=== PATIENT | female | born 2000 | race Hispanic/Latino ===

== ENCOUNTER 2021-10-04 21:10 | Day surgery (SDC) | payer OTHER ==
[2021-10-04 21:39] VITALS: BMI 32.3
[2021-10-04] MEDS ORDERED: hydrALAZINE 20 MG/ML VIAL SLOW IVP PRN (23:08)
[2021-10-04] MEDS ORDERED: Lactated Ringer's 1,000 ML IV SCH (23:15)
== END 2021-10-05 01:05 | disposition home or self-care (01) ==
LOC: CSHLD/OP 21:10
PROVIDERS: ATTEND Obstetrics & Gynecology
DX: O47.1 False labor at or after 37 completed weeks of gestation (principal); O99.891 Other specified diseases and conditions complicating pregnancy; R00.0 Tachycardia, unspecified; O99.353 Diseases of the nervous system complicating pregnancy, third trimester; G35 Multiple sclerosis; O34.219 Maternal care for unspecified type scar from previous cesarean delivery; Z3A.38 38 weeks gestation of pregnancy
CPT/HCPCS: 96360; 96361; 99282

== ENCOUNTER 2021-10-12 02:47 | Inpatient (IN) | payer OTHER ==
[2021-10-12 03:20] VITALS: BMI 32.5
[2021-10-12] MEDS ORDERED: NS w/ Oxytocin 30 units 500 ML IV SCH ×2 (07:15→22:00)
[2021-10-12] MEDS ORDERED: Lidocaine 1% (PF) 30 ML VIAL SC PRN (07:15)
[2021-10-12] MEDS ORDERED: Ibuprofen 800 MG TAB PO PRN (07:15)
[2021-10-12] MEDS ORDERED: HYDROcodone/Acetaminophen 5/325 mg Tablet PO PRN ×3 (07:15→21:39)
[2021-10-12] MEDS ORDERED: Carboprost 250 MCG/ML AMP IM PRN (07:15)
[2021-10-12] MEDS ORDERED: Promethazine HCl 25 MG/ML VIAL IM PRN ×2 (07:15→12:51)
[2021-10-12] MEDS ORDERED: Misoprostol 200 MCG TAB PR PRN (07:15)
[2021-10-12] MEDS ORDERED: Methylergonovine 0.2 MG/ML VIAL IM PRN ×2 (07:15→21:39)
[2021-10-12] MEDS ORDERED: Diphenoxylate HCl/Atropine Tablet PO PRN (07:15)
[2021-10-12] MEDS ORDERED: Acetaminophen 500 MG TAB PO PRN (07:15)
[2021-10-12] MEDS ORDERED: hydrALAZINE 20 MG/ML VIAL SLOW IVP PRN ×2 (07:15→21:39)
[2021-10-12] MEDS ORDERED: Ondansetron PF 4 MG/2 ML Vial IVP PRN ×3 (07:15→21:39)
[2021-10-12 07:51] LABS: Mean Corpuscular Hemoglobin 30.7 pg (27.0-33.0); Mean Corpuscular Volume 87.7 fl (81.6-98.3); Mean Platelet Volume 12.3 fl (7.4-10.4); Platelet Count 180 10x3/uL (150-450); Red Blood Cell (RBC) Count 3.91 10x6/uL (3.90-5.03); White Blood Cell (WBC) Count 10.2 10x3/uL (3.5-10.5)
[2021-10-12] MEDS: Butorphanol Tartrate 1 MG/ML VIAL SLOW IVP PRN ×2 (07:55→10:59)
[2021-10-12] MEDS ORDERED: Lidocaine 2% MPF 10 ML AMP (For Epidural Use) ONE (08:00)
[2021-10-12] MEDS ORDERED: Bupivacaine 0.25% HCL 30 ML VIAL ONE (08:00)
[2021-10-12 08:23] LABS: Hep B Surf Ag Non-Reactive S/CO (NonReactive)
[2021-10-12 08:24] LABS: Syphilis Antibody Nonreactive (Nonreactive); Syphilis Antibody Index 0.03 S/CO (<1.00 Non-Reactive)
[2021-10-12 09:03] LABS: HBSAg Index 0.22 S/CO (0-0.99)
[2021-10-12 11:34] LABS: SARS-CoV-2 NAA Rapid Test Not Detected (NotDetected)
[2021-10-12] MEDS ORDERED: Fentanyl 2 mcg/Bup 0.1% Cadd 100 ML ONE (12:05)
[2021-10-12] MEDS: Lactated Ringer's 1,000 ML IV SCH ×2 (12:37→18:20)
[2021-10-12] MEDS ORDERED: Lactated Ringer's 500 ML IV PRN (12:51)
[2021-10-12] MEDS ORDERED: Naloxone HCl 0.4 mg/ml Vial IVP PRN ×2 (12:51)
[2021-10-12] MEDS ORDERED: Hydrocerin (Eucerin) Cream 120 gm Jar TOP PRN (12:51)
[2021-10-12] MEDS ORDERED: Acetaminophen 325 MG TAB PO PRN (12:51)
[2021-10-12] MEDS ORDERED: ePHEDrine Sulfate 50 MG/10 ML VIAL SLOW IVP PRN (12:51)
[2021-10-12] MEDS ORDERED: diphenhydrAMINE 50 MG/ML VIAL IVP PRN (12:51)
[2021-10-12] MEDS ORDERED: Fentanyl 2 mcg/Bupivacaine 0.1% Cassette 100 ML EPIDURAL SCH (13:00)
[2021-10-12] MEDS ORDERED: Communication Order-Pharmacy FS SCH (13:00)
[2021-10-12] MEDS ORDERED: PROPOFOL 20 ML ONE (13:01)
[2021-10-12] MEDS: NS w/ Oxytocin 30 units 500 ML IV SCH ×2 (17:30→18:21)
[2021-10-12] MEDS ORDERED: Lanolin Ointment 7 GM TUBE TOP PRN (21:39)
[2021-10-12] MEDS ORDERED: Boostrix 0.5 ML (Tdap) VIAL IM ONE (21:39)
[2021-10-12] MEDS ORDERED: Bisacodyl 10 MG SUPP PR PRN (21:39)
[2021-10-12] MEDS ORDERED: Misoprostol 200 MCG TAB VAG PRN (21:39)
[2021-10-12] MEDS ORDERED: Zolpidem Tartrate 5 MG TAB PO PRN (21:39)
[2021-10-12] MEDS ORDERED: Milk Of Magnesia 30 ML UDCUP PO PRN (21:39)
[2021-10-12] MEDS ORDERED: Benzocaine-Menthol 82.5 ML CAN TOP PRN (21:39)
[2021-10-12] MEDS ORDERED: Docusate 100 MG CAP PO SCH (22:00)
[2021-10-12] MEDS: Ibuprofen 800 MG TAB PO SCH (22:29)
[2021-10-13] MEDS: Ibuprofen 800 MG TAB PO SCH ×3 (06:03→21:12)
[2021-10-13] MEDS: HYDROcodone/Acetaminophen 5/325 mg Tablet PO PRN ×2 (07:24→17:56)
[2021-10-13] MEDS: Ferrous Sulfate 325 MG TAB PO SCH ×2 (09:09→17:56)
[2021-10-13] MEDS: Prenatal Vitamin 1 TAB PO SCH (09:11)
[2021-10-13] MEDS: Docusate 100 MG CAP PO SCH ×2 (09:11→21:12)
[2021-10-14] MEDS: Ibuprofen 800 MG TAB PO SCH (06:03)
[2021-10-14] MEDS: Ferrous Sulfate 325 MG TAB PO SCH (07:28)
[2021-10-14 08:25] VITALS: BP 108/62; TEMP 97.9
[2021-10-14] MEDS: Prenatal Vitamin 1 TAB PO SCH (08:42)
[2021-10-14] MEDS: Docusate 100 MG CAP PO SCH (08:42)
== END 2021-10-14 10:14 | disposition home or self-care (01) | DRG 806 ==
LOC: CSHLD/OP 02:47 → CSHLD 07:13 → CSHPP 21:36
PROVIDERS: ADMIT Obstetrics & Gynecology; ATTEND Obstetrics & Gynecology
PROC: 10E0XZZ Delivery of Products of Conception, External Approach (ICD-10-PCS; principal; 2021-10-12)
PROC: 10907ZC Drainage of Amniotic Fluid, Therapeutic from Products of Conception, Via Natural or Artificial Opening (ICD-10-PCS; 2021-10-12)
PROC: 0HQ9XZZ Repair Perineum Skin, External Approach (ICD-10-PCS; 2021-10-12)
DX: O34.211 Maternal care for low transverse scar from previous cesarean delivery (principal); O99.354 Diseases of the nervous system complicating childbirth; Z37.0 Single live birth; Z3A.39 39 weeks gestation of pregnancy; J45.909 Unspecified asthma, uncomplicated; O99.52 Diseases of the respiratory system complicating childbirth; G35 Multiple sclerosis; O70.0 First degree perineal laceration during delivery
CPT/HCPCS: 36415; 51702; 85027; 86780; 86850; 86900; 86901; 87340; 99285; J0595; J2405; J2590; J2704; J7120; S0020; U0002

== ENCOUNTER 2022-05-06 14:29 | Emergency (ER) | payer BC ==
[2022-05-06 15:38] LABS: #Eosinphils 0.1 10x3/uL (0.0-0.5); #Monocytes 0.4 10x3/uL (0.0-1.1); #Neutrophils 2.6 10x3/uL (1.5-8.4); %Basophils 0.2 % (0.0-2.0); %Eosinophils 1.1 % (0.0-6.0); %Lymphocytes 32.1 % (18.0-47.0); %Monocytes 9.1 % (0.0-10.0); %Neutrophils 57.3 % (40.0-75.0); Hemoglobin 12.5 g/dL (12.0-15.5); Mean Corpuscular HGB CONC 36.1 g/dL (32.0-36.0); Mean Corpuscular Hemoglobin 30.5 pg (27.0-33.0); Mean Corpuscular Volume 84.4 fl (81.6-98.3); Mean Platelet Volume 11.5 fl (7.4-10.4); Platelet Count 233 10x3/uL (150-450); RBC Distribution Width 12.5 % (11.5-14.5); White Blood Cell (WBC) Count 4.5 10x3/uL (3.5-10.5)
[2022-05-06 15:41] LABS: Bilirubin 1+ (Negative); Blood, Urine Negative (Negative); Clarity Slightly Cloudy (Clear); Glucose, Urine (Dipstick) Normal (Negative); Ketone, Urine 50 mg/dL (Negative); Leukocyte 25 (Negative); Nitrite Positive (Negative); Protein, Urine (Dipstick) 30 mg/dl (Neg-Trace)
[2022-05-06 15:55] LABS: RBC/HPF 0-3 HPF (0-3)
[2022-05-06 15:56] LABS: Bacteria/HPF 2+ HPF (None Seen); Epithelial Cast 0-3 LPF (None Seen); Mucous/LPF 2+ LPF (<2+)
== END 2022-05-06 17:35 | disposition home or self-care (01) ==
LOC: CSHERS 14:29
DX: O23.41 Unspecified infection of urinary tract in pregnancy, first trimester (principal); Z3A.08 8 weeks gestation of pregnancy
CPT/HCPCS: 76856; 81003; 81015; 84702; 85025; 86900; 86901; 87086

== ENCOUNTER 2022-09-04 10:34 | Outpatient (CLI) | payer OTHER | END 2022-09-04 10:35 | disposition home or self-care (01) | LOC: CSHRAD 10:34 | PROVIDERS: ATTEND Student in an Organized Health Care Education/Training Program | DX: R05.9 Cough, unspecified (principal) | CPT/HCPCS: 71046 ==

== ENCOUNTER 2022-11-27 20:42 | Day surgery (SDC) | payer OTHER ==
[2022-11-27 20:59] VITALS: BMI 33.6
[2022-11-27] MEDS ORDERED: hydrALAZINE 20 MG/ML VIAL SLOW IVP PRN (21:53)
== END 2022-11-27 22:25 | disposition home or self-care (01) ==
LOC: CSHLD/OP 20:42
PROVIDERS: ATTEND Student in an Organized Health Care Education/Training Program
DX: O47.1 False labor at or after 37 completed weeks of gestation (principal); O99.013 Anemia complicating pregnancy, third trimester; D64.9 Anemia, unspecified; Z3A.37 37 weeks gestation of pregnancy; Z79.899 Other long term (current) drug therapy; Z88.8 Allergy status to other drugs, medicaments and biological substances

== ENCOUNTER 2022-12-07 23:22 | Inpatient (IN) | payer OTHER ==
[2022-12-07 23:34] VITALS: BMI 33.4
[2022-12-07] MEDS ORDERED: hydrALAZINE 20 MG/ML VIAL SLOW IVP PRN (23:44)
[2022-12-08] MEDS ORDERED: Lidocaine 1% (PF) 30 ML VIAL SC PRN (01:18)
[2022-12-08] MEDS ORDERED: Promethazine HCl 25 MG/ML VIAL IM PRN ×2 (01:18→11:11)
[2022-12-08] MEDS ORDERED: Methylergonovine 0.2 MG/ML VIAL IM PRN (01:18)
[2022-12-08] MEDS ORDERED: Misoprostol 200 MCG TAB PR PRN (01:18)
[2022-12-08] MEDS ORDERED: Diphenoxylate HCl/Atropine Tablet PO PRN (01:18)
[2022-12-08] MEDS ORDERED: Docusate 100 MG CAP PO PRN (01:18)
[2022-12-08] MEDS ORDERED: Ondansetron PF 4 MG/2 ML Vial IVP PRN ×3 (01:18→18:15)
[2022-12-08] MEDS ORDERED: Carboprost 250 MCG/ML AMP IM PRN (01:18)
[2022-12-08] MEDS ORDERED: hydrALAZINE 20 MG/ML VIAL SLOW IVP PRN ×2 (01:18→18:15)
[2022-12-08] MEDS ORDERED: Tranexamic Acid 1,000 MG/10 ML VIAL IVP PRN (01:18)
[2022-12-08] MEDS ORDERED: NS w/ Oxytocin 30 units 500 ML IV SCH ×2 (01:30→05:00)
[2022-12-08 01:36] LABS: Fetal Membranes Rupture No Membranes Rupture (No Rupture)
[2022-12-08 02:04] LABS: Hemoglobin 9.8 g/dL (12.0-15.5); Mean Corpuscular HGB CONC 32.9 g/dL (32.0-36.0); Mean Corpuscular Hemoglobin 27.7 pg (27.0-33.0); Mean Corpuscular Volume 84.2 fl (81.6-98.3); Mean Platelet Volume 12.2 fl (7.4-10.4); Platelet Count 174 10x3/uL (150-450); RBC Distribution Width 13.9 % (11.5-14.5); Red Blood Cell (RBC) Count 3.54 10x6/uL (3.90-5.03); White Blood Cell (WBC) Count 6.4 10x3/uL (3.5-10.5)
[2022-12-08 02:34] LABS: HBSAg Index 0.16 S/CO (0-0.99); Hep B Surf Ag - L&D Non-Reactive S/CO (NonReactive)
[2022-12-08 02:35] LABS: Syphilis Antibody Nonreactive (Nonreactive); Syphilis Antibody Index 0.04 S/CO (<1.00 Non-Reactive)
[2022-12-08] MEDS ORDERED: Misoprostol 100 MCG TAB VAG SCH (05:00)
[2022-12-08] MEDS ORDERED: Calcium Carbonate 500 MG ChewTAB PO PRN (06:50)
[2022-12-08] MEDS: Lactated Ringer's 1,000 ML IV SCH ×3 (07:24→18:15)
[2022-12-08] MEDS ORDERED: Bupivacaine 0.25% HCL 30 ML VIAL ONE (08:00)
[2022-12-08] MEDS ORDERED: fentaNYL/Ropivacaine Epidural 100 ML ONE (10:21)
[2022-12-08] MEDS ORDERED: Moisturizing Cream (Eucerin) 113 GM JAR TOP PRN (11:11)
[2022-12-08] MEDS ORDERED: diphenhydrAMINE 50 MG/ML VIAL IVP PRN (11:11)
[2022-12-08] MEDS ORDERED: Acetaminophen 325 MG TAB PO PRN (11:11)
[2022-12-08] MEDS ORDERED: ePHEDrine Sulfate 50 MG/10 ML VIAL SLOW IVP PRN (11:11)
[2022-12-08] MEDS ORDERED: Lactated Ringer's 500 ML IV PRN (11:11)
[2022-12-08] MEDS ORDERED: Naloxone HCl 0.4 mg/ml Vial IVP PRN ×2 (11:11)
[2022-12-08] MEDS ORDERED: fentaNYL 2 mcg/Ropivacaine 0.2% Epidural 100 ML CADD EPIDURAL SCH (11:15)
[2022-12-08] MEDS ORDERED: Communication Order-Pharmacy FS SCH (11:15)
[2022-12-08] MEDS ORDERED: fentaNYL 50 mcg/mL 1 mL Vial SLOW IVP PRN (17:58)
[2022-12-08] MEDS ORDERED: Preparation H Ointment 28 GM TUBE PR PRN (18:15)
[2022-12-08] MEDS ORDERED: Bisacodyl 10 MG SUPP PR PRN (18:15)
[2022-12-08] MEDS ORDERED: Boostrix 0.5 ML (Tdap) VIAL (>/=7 yrs of age) IM ONE (18:15)
[2022-12-08] MEDS ORDERED: diphenhydrAMINE 25 MG CAP PO PRN (18:15)
[2022-12-08] MEDS ORDERED: Lanolin Ointment 7 GM TUBE TOP PRN (18:15)
[2022-12-08] MEDS ORDERED: Benzocaine-Menthol 82.5 ML CAN TOP PRN (18:15)
[2022-12-08] MEDS ORDERED: Milk Of Magnesia 30 ML UDCUP PO PRN (18:15)
[2022-12-08] MEDS: Ibuprofen 800 MG TAB PO SCH (20:34)
[2022-12-08] MEDS: Docusate 100 MG CAP PO SCH (20:34)
[2022-12-08] MEDS: HYDROcodone/Acetaminophen 5/325 mg Tablet PO PRN (22:20)
[2022-12-09] MEDS: HYDROcodone/Acetaminophen 5/325 mg Tablet PO PRN ×4 (04:27→20:09)
[2022-12-09] MEDS: Ibuprofen 800 MG TAB PO SCH ×3 (04:38→21:13)
[2022-12-09] MEDS: Prenatal Vitamin 1 TAB PO SCH (08:17)
[2022-12-09] MEDS: Docusate 100 MG CAP PO SCH ×2 (08:17→20:09)
[2022-12-09] MEDS: Ferrous Sulfate 325 MG TAB PO SCH ×2 (08:17→17:38)
[2022-12-10] MEDS: Ibuprofen 800 MG TAB PO SCH (05:33)
[2022-12-10 07:36] VITALS: BP 119/69; TEMP 98.8
[2022-12-10] MEDS: Prenatal Vitamin 1 TAB PO SCH (08:26)
[2022-12-10] MEDS: HYDROcodone/Acetaminophen 5/325 mg Tablet PO PRN (08:26)
[2022-12-10] MEDS: Docusate 100 MG CAP PO SCH (08:26)
[2022-12-10] MEDS: Ferrous Sulfate 325 MG TAB PO SCH (08:26)
== END 2022-12-10 13:00 | disposition home or self-care (01) | DRG 807 ==
LOC: CSHLD/OP 23:22 → CSHLD 12-08 00:22 → CSHPP 12-08 17:40 → CSHLD 12-08 17:45 → CSHPP 12-08 18:39
PROVIDERS: ADMIT Obstetrics & Gynecology; ATTEND Obstetrics & Gynecology
PROC: 10E0XZZ Delivery of Products of Conception, External Approach (ICD-10-PCS; principal; 2022-12-08)
PROC: 10907ZC Drainage of Amniotic Fluid, Therapeutic from Products of Conception, Via Natural or Artificial Opening (ICD-10-PCS; 2022-12-08)
PROC: 10H07YZ Insertion of Other Device into Products of Conception, Via Natural or Artificial Opening (ICD-10-PCS; 2022-12-08)
DX: O41.03X0 Oligohydramnios, third trimester, not applicable or unspecified (principal); Z37.0 Single live birth; Z3A.39 39 weeks gestation of pregnancy; O34.211 Maternal care for low transverse scar from previous cesarean delivery; J45.909 Unspecified asthma, uncomplicated; O99.52 Diseases of the respiratory system complicating childbirth; Z90.49 Acquired absence of other specified parts of digestive tract; Z79.899 Other long term (current) drug therapy; Z88.8 Allergy status to other drugs, medicaments and biological substances
CPT/HCPCS: 51702; 76819; 84112; 85027; 86780; 86850; 86900; 86901; 87340; 99285; J2590; J7120; S0020